=== PATIENT | female | born 1995 | race African-American/Black ===

== ENCOUNTER 2023-11-04 09:12 | Emergency (ER) | payer MEDICAID ==
[~2023-11-04] VITALS: Ht 160 cm; Wt 75.0 kg
[2023-11-04 09:19] VITALS: TEMP 98.5; O2SAT 99
[2023-11-04] MEDS ORDERED: KETOROLAC 60MG/2ML VIAL IM ONE (09:45)
[2023-11-04] MEDS ORDERED: CYCL10TA21 MT (10:41)
[2023-11-04] MEDS ORDERED: IBUP-2029 MT (10:41)
[2023-11-04 10:49] VITALS: BP 117/74; PULSE 69; RESP 18
== END 2023-11-04 10:52 | disposition home or self-care (01) ==
LOC: ER 09:12
DX: R51.9 Headache, unspecified (principal); M54.9 Dorsalgia, unspecified; V99.XXXA Unspecified transport accident, initial encounter; Y93.89 Activity, other specified; Y92.89 Other specified places as the place of occurrence of the external cause; Y99.8 Other external cause status
CPT/HCPCS: 99283; 71045; 81025; 96372; J1885